=== PATIENT | female | born 1990 | race African-American/Black ===

== ENCOUNTER 2018-07-11 19:34 | Emergency (ER) | payer OTHER ==
[~2018-07-11] VITALS: Ht 172.7 cm; Wt 117.9 kg
[2018-07-11] MEDS ORDERED: TRAZODONE HCL50 MG PO (19:53)
[2018-07-11] MEDS ORDERED: VENTOLIN HFA 1818 GM INH (19:56)
[2018-07-11 20:30] VITALS: BP 154/86
== END 2018-07-11 20:30 | disposition home or self-care (01) ==
LOC: ER 19:34
DX: J45.909 Unspecified asthma, uncomplicated (principal); F41.9 Anxiety disorder, unspecified; I10 Essential (primary) hypertension